=== PATIENT | female | born 1975 | race Caucasian/White ===

== ENCOUNTER → 2017-08-19 | Outpatient (CLI) | payer OTHER ==
[~2017-08-19] MED LIST: ACET325 PO; AMOCLA875 PO; AZIT250 PO; CYCL10 PO; DIPHENHIST PO; HYDACE5 PO; HYDCHL25 PO; METO50ER PO; NAPR500 PO; OXYACE5T PO; Prinivil10 MG PO; RXCYCL10 PO; TRAM50 PO
== END | disposition home or self-care (01) ==
LOC: OLS 14:37 → LAB SHORT 14:37
PROVIDERS: Internal Medicine
DX: N20.0 Calculus of kidney (principal)
CPT/HCPCS: 82570; 84156

== ENCOUNTER → 2019-10-30 | Outpatient (CLI) | payer OTHER ==
[2019-11-01 15:10] LABS: HPV 16 Negative (Negative); HPV 18 Negative (Negative); HPV OTHER HR TYPES Negative (Negative)
== END | disposition home or self-care (01) ==
LOC: LAB 07:08 → LAB SHORT 07:08
PROVIDERS: Physician Assistant
DX: Z01.419 Encounter for gynecological examination (general) (routine) without abnormal findings (principal)
CPT/HCPCS: 87624; G0145